=== PATIENT | female | born 1945 | race Caucasian/White ===

== ENCOUNTER 2016-06-05 08:22 | Emergency (ER) | payer OTHER ==
[~2016-06-05] VITALS: Ht 162.6 cm; Wt 75.7 kg
[~2016-06-05 08:22] MED LIST: GLIP5TAB4 PO
[2016-06-05 08:30] VITALS: BP 175/73
[2016-06-05] MEDS ORDERED: TIM.5OS OP (08:34)
[2016-06-05] MEDS ORDERED: XALOS OP (08:34)
--- NOTE | 2016-06-05 08:35 | NUR ---
Patient to bed 06.
[2016-06-05] MEDS ORDERED: ONDANSETRON 4 MG/2 ML VIAL IVP ONE (08:45)
[2016-06-05] MEDS ORDERED: NACL 0.9% 500 ML IV ONE (08:45)
--- NOTE | 2016-06-05 08:48 | NUR ---
Dr. Carmona evaluating patient at bedside.
--- NOTE | 2016-06-05 08:50 | NUR ---
PATIENT PRESENTS TO ED WITH C/O LEFT FLANK PAIN X 2 DAYS, PT. STATES IT STARTED AFTER CARRYING SOMETHING HEAVY, DENIES UTI SYMPTOMS AND HEMATURIA; DENIES N/V/D; SKIN IS PINK/WARM/DRY; AAOX4 WITH EVEN AND STEADY GAIT; LUNGS CLEAR BL; HR EVEN AND REGULAR; PT DENIES ANY FEVER, CP, SOB, OR COUGH AT THIS TIME; PATIENT STATES PAIN OF 10/10 AT THIS TIME; VSS; PATIENT POSITIONED FOR COMFORT; HOB ELEVATED; BEDRAILS UP X2; BED DOWN. ER MD MADE AWARE OF PT STATUS.
[2016-06-05] MEDS ORDERED: ACETAMINOPHEN EXTRA STRENGTH 500 MG TAB PO ONE (08:55)
[2016-06-05] MEDS ORDERED: CYCLOBENZAPRINE 10 MG TAB PO ONE (08:55)
--- NOTE | 2016-06-05 09:07 | NUR ---
OBED PT TAKEN OFF THE UNIT VIA WHEEL CHAIR BY GABO CABRERA
--- NOTE | 2016-06-05 10:03 | NUR ---
MD NOTIFIED OF URINE DIP STICK RESULTS, PT ASSYMPTOMATIC, NO C/O PAIN ON URINATION, PT NOTIFIED, WILL MONITOR FOR ANY CHANGES
[2016-06-05] MEDS ORDERED: oxyCODONE 10 MG TABER PO ONE (10:05)
[2016-06-05] MEDS ORDERED: oxyCODONE 5 MG TAB PO PRN (10:50)
[2016-06-05 11:20] VITALS: BP 148/78
--- NOTE | 2016-06-05 11:20 | NUR ---
Patient discharged with v/s stable. Written and verbal after care instructions given and explained. Patient alert, oriented and verbalized understanding of instructions. Ambulatory with steady gait. All questions addressed prior to discharge. ID band removed. Patient advised to follow up with PMD. Rx of PERCOCET given. Patient educated on indication of medication including possible reaction and side effects. Opportunity to ask questions provided and answered.
== END 2016-06-05 11:20 | disposition home or self-care (01) ==
LOC: MED 08:22
DX: S22.32XA Fracture of one rib, left side, initial encounter for closed fracture (principal); E11.9 Type 2 diabetes mellitus without complications; X50.0XXA Overexertion from strenuous movement or load, initial encounter; Y93.E9 Activity, other interior property and clothing maintenance; Y92.9 Unspecified place or not applicable
CPT/HCPCS: 71101; 81002; 99285

== ENCOUNTER 2017-06-12 14:45 | Emergency (ER) | payer OTHER, MEDICAID ==
[~2017-06-12] VITALS: Ht 162.6 cm; Wt 79.4 kg
[~2017-06-12 14:45] MED LIST changes: +TIM.5OS OP; +XALOS OP
[2017-06-12 15:46] VITALS: BP 179/76
--- NOTE | 2017-06-12 17:52 | NUR ---
PT AMBULATED TO BED 4 WITH LIMP
--- NOTE | 2017-06-12 17:55 | NUR ---
PATIENT PRESENTS TO ED WITH C/O OF RT LOWER LEG PAIN, THINKS INSECT BITE HX; DM, HTN, GLAUCOMAM, RX; LIPSINOPRIL, GLIPIZIDE, DORZOLAMIDE, LATANOPROST . AAOX4 WITH EVEN AND STEADY GAIT; LUNGS CLEAR BL; HR EVEN AND REGULAR; PT DENIES ANY FEVER, CP, SOB, OR COUGH AT THIS TIME; DENIES N/V/D; SKIN IS PINK/WARM/DRY;PATIENT STATES PAIN OF 10/10 AT THIS TIME; VSS; PATIENT POSITIONED FOR COMFORT; HOB ELEVATED; BEDRAILS UP X2; BED DOWN. ER MD MADE AWARE OF PT STATUS.
--- NOTE | 2017-06-12 19:00 | NUR ---
REPORT GIVEN TO WRAPPER LAYER AND EXAMINER SOFT WORK NURSE FOR CONTINUE OF CARE.
--- NOTE | 2017-06-12 19:10 | NUR ---
RECEIVED REPORT FROM AM NURSE. PT CONDITION STABLE.
--- NOTE | 2017-06-12 19:42 | NUR ---
PT RESTING IN BED COMFORTABLY, RR EVEN AND UNLABORED. ALL NEEDS MET AT THIS TIME.
--- NOTE | 2017-06-12 20:02 | NUR ---
Dr. Yu evaluating patient.
--- NOTE | 2017-06-12 20:25 | NUR ---
Ultrasound at bedside.
[2017-06-12 21:00] LABS: BASOPHILS % (AUTO) 0.7 % (0.0-2.0); EOSINOPHILS % (AUTO) 0.7 % (0.0-4.0); HEMATOCRIT 34.5 % (36-48); HEMOGLOBIN 11.5 g/dL (12.0-16.0); LYMPHOCYTES # (AUTO) 1.8 K/uL (2.5-16.5); LYMPHOCYTES % (AUTO) 35.2 % (20.5-51.1); MEAN CORPUSCULAR HEMOGLOBIN 33 pg (27-31); MEAN CORPUSCULAR HGB CONC 33 g/dL (33-37); MEAN CORPUSCULAR VOLUME 97.3 fL (80-94); MONOCYTES # (AUTO) 0.2 K/uL (0.8-1.0); MONOCYTES % (AUTO) 4.5 % (1.7-9.3); NEUTROPHILS # (AUTO) 3.2 K/uL (1.8-7.7); NEUTROPHILS % (AUTO) 58.9 % (42.2-75.2); PLATELET COUNT (AUTO) 311 K/uL (140-450); RED BLOOD CELL COUNT(AUTO) 3.55 MIL/uL (4.20-5.40); RED CELL DISTRIBUTION WIDTH 12.7 % (11.6-13.7); WHITE BLOOD COUNT (AUTO) 5.2 K/uL (4.8-10.8)
--- NOTE | 2017-06-12 21:28 | NUR ---
PT RESTING IN BED COMFORTABLY, RR EVEN AND UNLABORED, PT REPORTS TOLERABLE PAIN AT THIS TIME. ALL NEEDS MET AT THIS TIME.
[2017-06-12 21:58] LABS: PROTHROMBIN TIME 9.8 secs (10.8-13.4)
[2017-06-12 23:20] VITALS: BP 164/77
--- NOTE | 2017-06-12 23:20 | NUR ---
Patient discharged with v/s stable. Written and verbal after care instructions given and explained. Patient alert, oriented and verbalized understanding of instructions. Ambulatory with steady gait USING CANE. All questions addressed prior to discharge. ID band removed. Patient advised to follow up with PMD. Rx of BACTRIM DS 800/160 MG, KEFLEX 500 MG given. Patient educated on indication of medication including possible reaction and side effects. Opportunity to ask questions provided and answered.
[2017-06-13 00:49] LABS: ANION GAP 13.6 (8-16); CARBON DIOXIDE 24.2 mmol/L (21-32); CHLORIDE 102 mmol/L (98-107); GLUCOSE 260 mg/dL (74-106); POTASSIUM 4.8 mmol/L (3.5-5.1)
[2017-06-13 00:50] LABS: CREATININE 0.8 mg/dL (0.6-1.3); TOTAL BILIRUBIN 0.3 mg/dL (0.0-1.0); UREA NITROGEN, BLOOD 17 mg/dL (7-18)
[2017-06-13 00:51] LABS: ASPARTATE AMINOTRANSFERASE 19 U/L (15-37); SODIUM SERUM 135 mmol/L (136-145)
[2017-06-13 00:52] LABS: ALBUMIN 3.4 g/dL (3.4-5.0)
== END 2017-06-12 23:20 | disposition home or self-care (01) ==
LOC: MED 14:45
DX: L03.116 Cellulitis of left lower limb (principal); E11.9 Type 2 diabetes mellitus without complications; I10 Essential (primary) hypertension; Z79.899 Other long term (current) drug therapy
CPT/HCPCS: 36415; 80053; 82948; 83605; 85025; 85610; 87040; 93005; 93971; 99285; Q0092

== ENCOUNTER 2017-08-18 21:14 | Emergency (ER) | payer OTHER, MEDICAID ==
[~2017-08-18] VITALS: Ht 167.6 cm; Wt 79.4 kg
[2017-08-18 21:21] VITALS: BP 160/76
--- NOTE | 2017-08-18 21:26 | NUR ---
PT AMBULATED WITH CANE TO [facility] WITH STEADY GAIT
--- NOTE | 2017-08-18 21:37 | NUR ---
PT AMBULATED WITH ASSISTANCE TO ER BED 01
--- NOTE | 2017-08-18 21:40 | NUR ---
PATIENT PRESENTS TO ED WITH LEFT CALF CELLULITIS X1 DAY. PT DENIES N/V/D; SKIN IS PINK/WARM/DRY; AAOX4 WITH EVEN AND STEADY GAIT; LUNGS CLEAR BL; HR EVEN AND REGULAR; PT DENIES ANY FEVER, CP, SOB, OR COUGH AT THIS TIME; PATIENT STATES PAIN OF 7/10 AT THIS TIME; VSS; PATIENT POSITIONED FOR COMFORT; HOB ELEVATED; BEDRAILS UP X1; BED DOWN. ER MD MADE AWARE OF PT STATUS.
[2017-08-18 21:45] VITALS: BP 160/76
--- NOTE | 2017-08-18 22:42 | NUR ---
Patient discharged with v/s stable. Written and verbal after care instructions given and explained. Patient alert, oriented and verbalized understanding of instructions. Ambulatory with steady gait. All questions addressed prior to discharge. ID band removed. Patient advised to follow up with PMD. Rx of BACTRIM, MUPIROCIN given. Patient educated on indication of medication including possible reaction and side effects. Opportunity to ask questions provided and answered.
== END 2017-08-18 22:42 | disposition home or self-care (01) ==
LOC: MED 21:14
DX: L03.115 Cellulitis of right lower limb (principal); E11.9 Type 2 diabetes mellitus without complications; I10 Essential (primary) hypertension; Z79.899 Other long term (current) drug therapy
CPT/HCPCS: 99283

== ENCOUNTER 2018-05-11 14:38 | Emergency (ER) | payer OTHER, MEDICAID ==
[~2018-05-11] VITALS: Ht 170.2 cm; Wt 81.6 kg
[2018-05-11 14:58] VITALS: BP 169/76
--- NOTE | 2018-05-11 15:11 | NUR ---
73 Y/O F BIB FAMILY W/C/O PER PATIENT AND NIECE PT FELL. PT HAS NOT HAD ANY MEDICAL CARE SINCE THE FALL. COMPLAINING OF NOSE PAIN AND NOSEBLEED. RT. MID FINGER DISCOLORATION PER PATIENT. PT DENIES N/V/D; AAOX4, PERRL; LUNGS CLEAR BL, BREATHING UNLABORED; HR EVEN AND REGULAR, BL PERIPHERAL PULSES PRESENT; BS ACTIVE X4, NO TENDERNESS TO PALPATION, NO HEPATOSPLENOMEGALLY PALPATED, RESONANT TO PERCUSSION; PT DENIES ANY FEVER, CP, SOB, OR COUGH AT THIS TIME; PT STATES 6/10 PAIN AT THIS TIME; VSS; PATIENT POSITIONED FOR COMFORT; HOB ELEVATED; BEDRAILS UP X2; BED DOWN. HX: DM,HTN, GLAUCOMA BOTH EYES
[2018-05-11] MEDS ORDERED: LISI-420 PO (15:22)
[2018-05-11] MEDS ORDERED: METF500T PO (15:22)
[2018-05-11] MEDS ORDERED: DORZ10SO BOTH EYES (15:22)
--- NOTE | 2018-05-11 15:24 | NUR ---
PT TAKEN IN WHEEL CHAIR TO ER BED 02
--- NOTE | 2018-05-11 15:30 | NUR ---
DR. ZAMORA AT BEDSIDE EVALUATING.
--- NOTE | 2018-05-11 15:50 | NUR ---
PT BEING TAKEN TO CT.
[2018-05-11 18:35] VITALS: BP 155/79
== END 2018-05-11 18:36 | disposition home or self-care (01) ==
LOC: MED 14:38
DX: S00.33XA Contusion of nose, initial encounter (principal); S16.1XXA Strain of muscle, fascia and tendon at neck level, initial encounter; E11.9 Type 2 diabetes mellitus without complications; I10 Essential (primary) hypertension; Z79.84 Long term (current) use of oral hypoglycemic drugs; Z79.899 Other long term (current) drug therapy; W01.0XXA Fall on same level from slipping, tripping and stumbling without subsequent striking against object, initial encounter; Y93.01 Activity, walking, marching and hiking; Y92.098 Other place in other non-institutional residence as the place of occurrence of the external cause; Y99.8 Other external cause status
CPT/HCPCS: 70450; 70486; 72125; 99284

== ENCOUNTER 2018-10-07 10:33 | Emergency (ER) | payer OTHER, MEDICAID ==
[~2018-10-07] VITALS: Ht 170.2 cm; Wt 79.4 kg
[~2018-10-07 10:33] MED LIST changes: +DORZ10SO BOTH EYES; -GLIP5TAB4 PO; +LISI-420 PO; +METF500T PO; -TIM.5OS OP; -XALOS OP
[2018-10-07 10:58] VITALS: BP 132/66
--- NOTE | 2018-10-07 11:10 | NUR ---
Patient ambulated to bed 1 with family. RN evaluating patient at bedside.
--- NOTE | 2018-10-07 11:30 | NUR ---
BIB GRAND DAUGHTER. AAO X4 C/O NO BOWEL MOVEMENT FOR 4 DAYS. PT DENIES PAIN. PT TOOK DULCOLAX, BUT NO RELIEF. PER PT HAD SMALL BM AT HOME, SLIGHT BLOOD SEEN IN STOOL. DENIES ANY V, N AT THIS TIME. ER MD TO SEE THE PT. PT STATES OF GOING FOR BM IN HOSPITAL TODAY AFTER SHE ARRIVED. PMH: HTN, DM, GLAUCOMA, MED RX: CURRENTLY ON ANTIBIOTIC THERAPY, KEFLEX, FOR UTI, LISINOPRIL, METFORMIN, DORZOLAMIDE HCL OPHTHALMIC SHARON, LATANAPROST, DULCOLAX ALLERGIES: DENIES
[2018-10-07] MEDS ORDERED: METOCLOPRAMIDE 10 MG TAB PO ONE (11:40)
[2018-10-07] MEDS ORDERED: LACTULOSE 20 GM/30 ML UDC PO ONE (11:40)
--- NOTE | 2018-10-07 12:00 | NUR ---
PT STATES TO HAVE BM AT HOSPITAL X6 TODAY. [facility]EWART [facility] AT BEDSIDE. PT TO TAKE THE LACTULOSE AT HOME , GAVE REGLAN ORDERED. WILL CONTINUE TO MOITOR PT.
[2018-10-07 12:15] VITALS: BP 132/66
--- NOTE | 2018-10-07 12:15 | NUR ---
Patient discharged with v/s stable. Written and verbal after care instructions given and explained. Patient alert, oriented and verbalized understanding of instructions. Ambulatory with steady gait. All questions addressed prior to discharge. ID band removed. Patient advised to follow up with PMD. Rx of REGLAN given. Patient educated on indication of medication including possible reaction and side effects. Opportunity to ask questions provided and answered.
== END 2018-10-07 12:15 | disposition home or self-care (01) ==
LOC: MED 10:33
DX: E11.43 Type 2 diabetes mellitus with diabetic autonomic (poly)neuropathy (principal); K31.84 Gastroparesis; K59.00 Constipation, unspecified; I10 Essential (primary) hypertension; Z79.84 Long term (current) use of oral hypoglycemic drugs; Z79.899 Other long term (current) drug therapy
CPT/HCPCS: 99283; J8597

== ENCOUNTER 2019-04-25 17:25 | Emergency (ER) | payer OTHER, MEDICAID ==
[~2019-04-25] VITALS: Ht 167.6 cm; Wt 79.4 kg
[2019-04-25 17:34] VITALS: BP 196/87
--- NOTE | 2019-04-25 18:19 | NUR ---
PT TO CHAIR B WITH [facility]
--- NOTE | 2019-04-25 18:20 | NUR ---
C/O LEFT 1ST TOE PAIN X 1 WEEK. FBS 130 TODAY. PT REPORTS SAW PCP 1 WEEKS AGO AND PCP WAS CUTTING HER TOENAIL AND ACCIDENTLY CUT A PIECE OF SKIN. PT NOW REQUESTING ANTIBIOTICS. PAIN 2/10. SMALL ABRASION NOTED. NO DRAINAGE OR FOUL ODOR MED HX: DM,HTN, GLAUCOMA
--- NOTE | 2019-04-25 18:56 | NUR ---
JESSICA BARRIOS AT CHAIR
--- NOTE | 2019-04-25 19:20 | NUR ---
REPORT FROM VIN BELTRE RECEIVED, TRANSFER OF CARE AT THIS TIME
--- NOTE | 2019-04-25 19:50 | NUR ---
PATIENT ALERT AND AWAKE, BREATHING EVEN AND UNLABORED. XRAY AT BEDSIDE
[2019-04-25 20:37] LABS: BASOPHILS % (AUTO) 0.5 % (0.0-2.0); EOSINOPHILS % (AUTO) 0.8 % (0.0-4.0); HEMATOCRIT 29.5 % (36-48); HEMOGLOBIN 9.7 g/dL (12.0-16.0); LYMPHOCYTES # (AUTO) 1.1 K/uL (2.5-16.5); LYMPHOCYTES % (AUTO) 30.5 % (20.5-51.1); MEAN CORPUSCULAR HEMOGLOBIN 33 pg (27-31); MEAN CORPUSCULAR HGB CONC 33 g/dL (33-37); MEAN CORPUSCULAR VOLUME 100.4 fL (80-94); MONOCYTES # (AUTO) 0.2 K/uL (0.8-1.0); MONOCYTES % (AUTO) 6.2 % (1.7-9.3); NEUTROPHILS # (AUTO) 2.3 K/uL (1.8-7.7); PLATELET COUNT (AUTO) 258 K/uL (140-450); RED BLOOD CELL COUNT(AUTO) 2.94 MIL/uL (4.20-5.40); RED CELL DISTRIBUTION WIDTH 15.4 % (11.6-13.7); WHITE BLOOD COUNT (AUTO) 3.7 K/uL (4.8-10.8)
[2019-04-25 20:45] LABS: ANION GAP 10.8 (8-16); CARBON DIOXIDE 25.5 mmol/L (21-32); CHLORIDE 105 mmol/L (98-107); GLUCOSE 206 mg/dL (74-106); POTASSIUM 4.3 mmol/L (3.5-5.1); SODIUM SERUM 137 mmol/L (136-145); UREA NITROGEN, BLOOD 22 mg/dL (7-18)
[2019-04-25] MEDS ORDERED: BACITRACIN OINT 500 UNITS/GM PKT TP ONE (21:40)
--- NOTE | 2019-04-25 21:50 | NUR ---
PT WOUND COVERED WITH NON ADHERENT DRESSING AND WRAPPED WITH COFLEX TAPE
[2019-04-25 22:00] VITALS: BP 175/84
--- NOTE | 2019-04-25 22:00 | NUR ---
Patient discharged with v/s stable. Written and verbal after care instructions ABOUT SKIN ULCER given and explained. Patient alert, oriented and verbalized understanding of instructions. Ambulatory with steady gait. All questions addressed prior to discharge. ID band removed. Patient advised to follow up with PMD. Rx of KEFLEX given. Patient educated on indication of medication including possible reaction and side effects. Opportunity to ask questions provided and answered.
== END 2019-04-25 22:00 | disposition home or self-care (01) ==
LOC: MED 17:25
DX: L03.032 Cellulitis of left toe (principal); E11.9 Type 2 diabetes mellitus without complications; I10 Essential (primary) hypertension; Z79.899 Other long term (current) drug therapy
CPT/HCPCS: 36415; 73660; 80048; 85025; 85651; 86140; 99284; Q0092

== ENCOUNTER 2019-11-16 12:29 | Emergency (ER) | payer OTHER, MEDICAID ==
[~2019-11-16] VITALS: Ht 165.1 cm; Wt 63.5 kg
[2019-11-16 12:30] VITALS: BP 152/70
--- NOTE | 2019-11-16 12:41 | NUR ---
Note undone in EDM - 11/16/19 at 1246 by MEDOF 74 Y/O F C/C RIGHT FIRST DIGIT DISTAL PHALANGE BLISTER X 1 WEEK. PER PT BURNED FINGER WHILE COOKING. FINGER PRESENTS WITH ERYTHEMA AND SWELLING. NKA. HX DM,HTN,GLAUCOMA. RX METFORMIN,LISINOPRIL. NO NVD. PT CONCERNED OF BURN DUE TO BEING DIABETIC. SIDE RAIL X1.
--- NOTE | 2019-11-16 12:41 | NUR ---
74 Y/O F C/C RIGHT SECOND DIGIT DISTAL PHALANGE BLISTER X 1 WEEK. PER PT BURNED FINGER WHILE COOKING. FINGER PRESENTS WITH ERYTHEMA AND SWELLING. NKA. HX DM,HTN,GLAUCOMA. RX METFORMIN,LISINOPRIL. NO NVD. PT CONCERNED OF BURN DUE TO BEING DIABETIC. SIDE RAIL X1.
--- NOTE | 2019-11-16 12:44 | NUR ---
Dr. Otero is evaluating the patient at bedside.
[2019-11-16] MEDS ORDERED: BACITRACIN OINT 500 UNITS/GM PKT TP ONE (12:55)
[2019-11-16 13:08] VITALS: BP 145/68
--- NOTE | 2019-11-16 13:09 | NUR ---
Patient discharged with v/s stable. Written and verbal after care instructions given and explained. Patient alert, oriented and verbalized understanding of instructions. Wheel Chair Assisted with to car. All questions addressed prior to discharge. ID band removed. Patient advised to follow up with PMD. Rx of KEFLEX given. Patient educated on indication of medication including possible reaction and side effects. Opportunity to ask questions provided and answered.
== END 2019-11-16 13:09 | disposition home or self-care (01) ==
LOC: MED 12:29
DX: T23.221A Burn of second degree of single right finger (nail) except thumb, initial encounter (principal); S60.420A Blister (nonthermal) of right index finger, initial encounter; E11.9 Type 2 diabetes mellitus without complications; I10 Essential (primary) hypertension; Z98.890 Other specified postprocedural states; Z79.84 Long term (current) use of oral hypoglycemic drugs; Z79.899 Other long term (current) drug therapy; X58.XXXA Exposure to other specified factors, initial encounter; Y93.89 Activity, other specified; Y92.89 Other specified places as the place of occurrence of the external cause; Y99.8 Other external cause status
CPT/HCPCS: 99283

== ENCOUNTER 2021-04-08 20:15 | Emergency (ER) | payer OTHER, MEDICAID ==
[~2021-04-08] VITALS: Ht 172.7 cm; Wt 79.4 kg
[~2021-04-08 20:15] MED LIST changes: -LISI-420 PO; +LISI-487 PO
[2021-04-08 20:20] VITALS: BP 175/90
--- NOTE | 2021-04-08 20:23 | NUR ---
to lobby a/w bed ambulatory
--- NOTE | 2021-04-08 20:50 | NUR ---
SEEN AND EXAMINED BY SUZANNE
[2021-04-08] MEDS ORDERED: KETOROLAC 60 MG/2 ML VIAL IM ONE (23:00)
[2021-04-08] MEDS ORDERED: IBUP-2213 PO (23:28)
[2021-04-08] MEDS ORDERED: ACET-8386 PO (23:28)
[2021-04-08 23:40] VITALS: BP 139/92
--- NOTE | 2021-04-08 23:40 | NUR ---
Patient discharged with v/s stable. Written and verbal after care instructions given and explained. Patient alert, oriented and verbalized understanding of instructions. Ambulatory with steady gait. All questions addressed prior to discharge. ID band removed. Patient advised to follow up with PMD. Rx of NORCO, MOTRIN given. Patient educated on indication of medication including possible reaction and side effects. Opportunity to ask questions provided and answered.
== END 2021-04-08 23:40 | disposition home or self-care (01) ==
LOC: MED 20:15
DX: M54.9 Dorsalgia, unspecified (principal); E11.9 Type 2 diabetes mellitus without complications; I10 Essential (primary) hypertension
CPT/HCPCS: 81002; 96372; 99283; J1885